=== PATIENT | male | born 1960 | race Two or more races ===

== ENCOUNTER 2019-12-03 07:07 | Emergency (ER) | payer MEDICAID ==
[~2019-12-03] VITALS: Ht 180.3 cm; Wt 87.1 kg
[2019-12-03 10:22] LABS: Hemoglobin 11.8 g/dL (13.5-17.5); White Blood Cell 10.9 10^3/uL (4.4-10.8)
[2019-12-03 10:23] LABS: Hematocrit 37.2 % (41.0-53.0); Mean Corpuscular Hemoglobin 23.3 pg (28.0-32.0); Mean Corpuscular Hgb Conc. 31.8 g/dL (32.0-36.0); Mean Corpuscular Volume 73.3 fL (80.0-100.0); Platelet Count (auto) 194 10^3/uL (140-450); Red Blood Cells 5.07 10^6/uL (4.5-5.90); Red Cell Distribution Width 16.8 % (11.8-14.3)
[2019-12-03] MEDS ORDERED: SODIUM CHLORIDE 0.9% 1,000 ML IV ONE (10:27)
[2019-12-03 10:49] LABS: Albumin 3.8 g/dL (3.4-5.0); Calcium 8.5 mg/dL (8.5-10.1); Potassium 4.1 mmol/L (3.5-5.1)
[2019-12-03 10:52] LABS: BUN/Creatinine Ratio 14.8; Bilirubin, Total 2.2 mg/dL (0.2-1.0); Total Protein 7.5 g/dL (6.4-8.2)
[2019-12-03 10:59] LABS: Basophils % (manual) 0 (0.0-2.0); Blast Cells 0; Metamyelocytes % 0; Myelocytes % 0; Promyelocytes % 0; Reactive Lymphocytes 0
[2019-12-03 11:00] LABS: Lipase 185 U/L (73-393)
[2019-12-03 11:21] LABS: INR 1.13 (0.9-1.15); Partial Thromboplastin Time 29.1 sec (23.64-32.05)
[2019-12-03 11:36] LABS: Band Neutrophils % (manual) 1; Eosinophils % (manual) 2 (0-7); Lymphocytes % (manual) 51 (10.0-50.0); Monocytes % (manual) 7 (0-12)
[2019-12-03 13:13] VITALS: BP 142/70
== END 2019-12-03 13:22 | disposition home or self-care (01) ==
LOC: ER 07:07
DX: M25.512 Pain in left shoulder (principal); M25.511 Pain in right shoulder; F41.1 Generalized anxiety disorder; E83.119 Hemochromatosis, unspecified; Z90.81 Acquired absence of spleen
CPT/HCPCS: 36415; 74176; 80053; 83690; 83735; 84443; 84484; 85007; 85027; 85610; 85730; 93005; 99284; J7030

== ENCOUNTER 2020-12-06 11:30 | Emergency (ER) | payer BC, MEDICAID ==
[~2020-12-06] VITALS: Ht 180.3 cm; Wt 87.1 kg
[2020-12-06] MEDS ORDERED: SODIUM CHLORIDE 0.9% 1,000 ML IV ONE (12:45)
[2020-12-06] MEDS ORDERED: AZITHROMYCIN 500MG/ 250ML 250 ML IV ONE ×2 (12:45→13:00)
[2020-12-06] MEDS ORDERED: cefTRIAXone 1GM/50ML D5W 50 ML IV ONE (13:00)
[2020-12-06 13:17] LABS: Basophils # (auto) 0.1 10 ^3/uL (0-0.2); Basophils % (auto) 0.5 % (0.0-2.0); Eosinophils # (auto) 0 10 ^3/uL (0-0.8); Hemoglobin 9.8 g/dL (13.5-17.5); Monocytes # (auto) 0.6 10 ^3/uL (0-1.3); White Blood Cell 11.5 10^3/uL (4.4-10.8)
[2020-12-06 13:19] LABS: Lymphocytes # (auto) 2.2 10 ^3/uL (0.4-5.4); Mean Corpuscular Hemoglobin 23.9 pg (28.0-32.0); Mean Corpuscular Hgb Conc. 32.5 g/dL (32.0-36.0); Mean Corpuscular Volume 73.6 fL (80.0-100.0); Monocytes % (auto) 5.5 % (0.0-12.0); Neutrophils # (auto) 8.6 10 ^3/uL (1.6-8.6); Nucleated Red Blood Cells % 0.9 %; Platelet Count (auto) 305 10^3/uL (140-450); Red Blood Cells 4.08 10^6/uL (4.5-5.90); Red Cell Distribution Width 15.9 % (11.8-14.3)
[2020-12-06 13:25] LABS: Albumin 3.2 g/dL (3.4-5.0); Calcium 8.5 mg/dL (8.5-10.1)
[2020-12-06 13:28] LABS: BUN/Creatinine Ratio 15.5; Bilirubin, Total 1.4 mg/dL (0.2-1.0); Total Protein 7.6 g/dL (6.4-8.2)
[2020-12-06] MEDS ORDERED: BAMLANIVIMAB 700MG/200ML 200 ML IV ONE (13:45)
[2020-12-06 14:10] VITALS: BP 124/77
[2020-12-06 15:24] VITALS: BP 148/87
== END 2020-12-06 16:15 | disposition home or self-care (01) ==
LOC: ER 11:30
DX: U07.1 COVID-19 (principal); J12.82 Pneumonia due to coronavirus disease 2019; F17.200 Nicotine dependence, unspecified, uncomplicated
CPT/HCPCS: 36415; 71045; 80053; 82728; 85025; 87426; 93005; 96361; 96365; 96366; 96368; 99285; J0456; J0696; J7030; M0239; Q0239

== ENCOUNTER 2022-06-21 14:40 | Emergency (ER) | payer BC ==
[~2022-06-21] VITALS: Ht 180.3 cm; Wt 90.0 kg
[2022-06-21 15:03] VITALS: BP 136/64
[2022-06-21 15:37] LABS: Basophils # (auto) 0.2 10 ^3/uL (0-0.2); Eosinophils # (auto) 0.2 10 ^3/uL (0-0.8); Red Blood Cells 4.73 10^6/uL (4.5-5.90)
[2022-06-21 15:39] LABS: Eosinophils % (auto) 1.9 % (0.0-7.0); Hematocrit 34.8 % (41.0-53.0); Hemoglobin 11.4 g/dL (13.5-17.5); Lymphocytes # (auto) 2.9 10 ^3/uL (0.4-5.4); Lymphocytes % (auto) 28.6 % (10.0-50.0); Mean Corpuscular Hemoglobin 24.1 pg (28.0-32.0); Mean Corpuscular Hgb Conc. 32.8 g/dL (32.0-36.0); Mean Corpuscular Volume 73.6 fL (80.0-100.0); Monocytes # (auto) 1.1 10 ^3/uL (0-1.3); Monocytes % (auto) 11.4 % (0.0-12.0); Neutrophils # (auto) 5.6 10 ^3/uL (1.6-8.6); Neutrophils % (auto) 56.1 % (37.0-80.0); Red Cell Distribution Width 17.2 % (11.8-14.3)
[2022-06-21 15:41] LABS: Nucleated Red Blood Cells % 5.9 %
[2022-06-21 15:58] LABS: Albumin 3.8 g/dL (3.4-5.0); BUN/Creatinine Ratio 15.1; Calcium 8.5 mg/dL (8.5-10.1); Potassium 4.4 mmol/L (3.5-5.1)
== END 2022-06-22 00:03 | disposition home or self-care (01) ==
LOC: ER 14:40
DX: E83.119 Hemochromatosis, unspecified (principal); D56.9 Thalassemia, unspecified; R43.2 Parageusia; F17.290 Nicotine dependence, other tobacco product, uncomplicated; Z90.89 Acquired absence of other organs
CPT/HCPCS: 36415; 80053; 84484; 85025